=== PATIENT | female | born 1990 | race Caucasian/White ===

== ENCOUNTER → 2018-09-01 | Outpatient (CLI) | payer SELFPAY | LOC: M OUTALCOH 09:59 | PROVIDERS: ATTEND Psychiatry & Neurology Psychiatry | DX: Z13.9 Encounter for screening, unspecified (principal) ==

== ENCOUNTER 2018-09-29 10:00 | Outpatient (RCR) | payer SELFPAY | END 2018-10-02 | LOC: M OUTALCOH 10:00 | PROVIDERS: ATTEND Psychiatry & Neurology Psychiatry | DX: F14.10 Cocaine abuse, uncomplicated (principal); F10.10 Alcohol abuse, uncomplicated; F17.200 Nicotine dependence, unspecified, uncomplicated ==

== ENCOUNTER → 2018-11-01 | Outpatient (RCR) | payer SELFPAY | LOC: M OUTALCOH 10-06 13:56 | PROVIDERS: ATTEND Psychiatry & Neurology Psychiatry | DX: F14.10 Cocaine abuse, uncomplicated (principal); F10.10 Alcohol abuse, uncomplicated; F17.200 Nicotine dependence, unspecified, uncomplicated ==

== ENCOUNTER 2018-11-25 03:04 | Emergency (ER) | payer SELFPAY ==
[~2018-11-25] VITALS: Ht 167.6 cm; Wt 68.6 kg
[2018-11-25] MEDS ORDERED: WELLTAB38 PO (03:14)
[2018-11-25] MEDS ORDERED: MIRE1IUD IU (03:14)
[2018-11-25 03:27] LABS: HEMATOCRIT 38.7 % (36.0-47.0); HEMOGLOBIN 13.6 g/dl (12.0-15.5); MEAN CORPUSCULAR HEMOGLOBIN 31.9 pg (27.0-33.0); MEAN CORPUSCULAR HGB CONC 35.1 g/dl (32.0-36.5); MEAN CORPUSCULAR VOLUME 90.8 fl (80.0-96.0); PLATELET COUNT, AUTOMATED 225 10^3/uL (150-450); RED BLOOD COUNT 4.26 10^6/uL (4.00-5.40); WHITE BLOOD COUNT 7.2 10^3/uL (4.0-10.0)
[2018-11-25] MEDS ORDERED: ONDANSETRON 4MG/2ML VIAL (J2405) IV ONE (03:30)
[2018-11-25] MEDS ORDERED: NS 1,000 ML IV ONE (03:30)
[2018-11-25 03:41] LABS: HCG, SERUM QUALITATIVE NEGATIVE (NEGATIVE)
[2018-11-25 03:56] LABS: ACETAMINOPHEN LEVEL < 2.0 UG/ML (10.0-30.0); ALBUMIN 4.1 GM/DL (3.2-5.2); ALT/SGPT 23 U/L (12-78); BILIRUBIN,DIRECT < 0.1 MG/DL (0.0-0.2); BILIRUBIN,TOTAL 0.4 MG/DL (0.2-1.0); BLOOD UREA NITROGEN 6 MG/DL (7-18); CALCIUM LEVEL 8.8 MG/DL (8.5-10.1); CARBON DIOXIDE LEVEL 23 MEQ/L (21-32); CHLORIDE LEVEL 107 MEQ/L (98-107); CREATININE FOR GFR 0.88 MG/DL (0.55-1.30); ETHYL ALCOHOL (ETHANOL) 0.094 % (0.000-0.010); GLOMERULAR FILTRATION RATE > 60.0 (>60); GLUCOSE, FASTING 157 MG/DL (70-100); POTASSIUM SERUM 3.5 MEQ/L (3.5-5.1); SALICYLATE LEVEL 3.2 MG/DL (5.0-30.0); SODIUM LEVEL 141 MEQ/L (136-145); TOTAL PROTEIN 6.9 GM/DL (6.4-8.2)
[2018-11-25 05:41] VITALS: BP 106/55
--- NOTE | 2018-11-25 07:33 | ECGEPIP ---
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
--- NOTE | 2018-11-25 08:06 | REP ---
Clinical: Shortness of breath . Comparison: None . Technique: PA and lateral. Findings: The mediastinum and cardiac silhouette are normal. The lung cardenas are clear and without acute consolidation, effusion, or pneumothorax. The skeletal structures are intact and normal. Impression: 1. No acute cardiopulmonary process. Electronically Signed by Jean Pierre Beal MD 11/25/2018 07:58 A
== END 2018-11-25 05:32 | disposition home or self-care (01) ==
LOC: M ED 03:04
DX: F10.20 Alcohol dependence, uncomplicated (principal); F19.10 Other psychoactive substance abuse, uncomplicated; F33.9 Major depressive disorder, recurrent, unspecified; F41.9 Anxiety disorder, unspecified; K21.9 Gastro-esophageal reflux disease without esophagitis; Z79.899 Other long term (current) drug therapy; Z79.3 Long term (current) use of hormonal contraceptives; Z88.0 Allergy status to penicillin; Z88.2 Allergy status to sulfonamides; Z88.8 Allergy status to other drugs, medicaments and biological substances; F17.210 Nicotine dependence, cigarettes, uncomplicated
CPT/HCPCS: 71046; 80048; 80076; 84443; 84703; 85027; 93005; 96361; 96374; 99284; G0480; J2405

== ENCOUNTER 2018-11-29 13:00 | Outpatient (RCR) | payer SELFPAY ==
[~2018-11-29 13:00] MED LIST: MIRE1IUD IU; WELLTAB38 PO
== END 2018-12-02 ==
LOC: M OUTALCOH 13:00
PROVIDERS: ATTEND Psychiatry & Neurology Psychiatry
DX: F14.10 Cocaine abuse, uncomplicated (principal); F10.10 Alcohol abuse, uncomplicated; F17.200 Nicotine dependence, unspecified, uncomplicated

== ENCOUNTER 2018-12-27 14:39 | Outpatient (RCR) | payer OTHER, SELFPAY | END 2019-01-01 | LOC: M OUTALCOH 14:39 | PROVIDERS: ATTEND Psychiatry & Neurology Psychiatry | DX: F14.10 Cocaine abuse, uncomplicated (principal); F10.10 Alcohol abuse, uncomplicated; F17.200 Nicotine dependence, unspecified, uncomplicated ==

== ENCOUNTER 2019-01-30 16:00 | Outpatient (RCR) | payer OTHER, SELFPAY | END 2019-02-01 | LOC: M OUTALCOH 16:00 | PROVIDERS: ATTEND Psychiatry & Neurology Psychiatry | DX: F10.10 Alcohol abuse, uncomplicated (principal); F14.10 Cocaine abuse, uncomplicated; F17.200 Nicotine dependence, unspecified, uncomplicated ==

== ENCOUNTER 2019-03-03 11:30 | Outpatient (RCR) | payer SELFPAY | END 2019-03-04 | LOC: M OUTALCOH 11:30 | PROVIDERS: ATTEND Psychiatry & Neurology Psychiatry | DX: F14.10 Cocaine abuse, uncomplicated (principal); F10.10 Alcohol abuse, uncomplicated; F17.200 Nicotine dependence, unspecified, uncomplicated ==

== ENCOUNTER 2019-03-30 16:00 | Outpatient (RCR) | payer SELFPAY | END 2019-04-03 | LOC: M OUTALCOH 16:00 | PROVIDERS: ATTEND Psychiatry & Neurology Psychiatry | DX: F14.10 Cocaine abuse, uncomplicated (principal); F10.10 Alcohol abuse, uncomplicated; F17.200 Nicotine dependence, unspecified, uncomplicated ==

== ENCOUNTER → 2019-09-08 | Outpatient (CLI) | payer OTHER | LOC: M OUTALCOH 08:19 | PROVIDERS: ATTEND Psychiatry & Neurology Addiction Medicine | DX: F11.20 Opioid dependence, uncomplicated (principal); F14.20 Cocaine dependence, uncomplicated ==

== ENCOUNTER 2019-10-02 08:45 | Outpatient (RCR) | payer OTHER | END 2019-10-03 | LOC: M OUTALCOH 08:45 | PROVIDERS: ATTEND Psychiatry & Neurology Addiction Medicine | DX: F14.20 Cocaine dependence, uncomplicated (principal); F11.20 Opioid dependence, uncomplicated ==

== ENCOUNTER → 2019-11-02 | Outpatient (RCR) | payer OTHER | LOC: M OUTALCOH 10-04 13:18 | PROVIDERS: ATTEND Psychiatry & Neurology Addiction Medicine | DX: F14.20 Cocaine dependence, uncomplicated (principal); F11.20 Opioid dependence, uncomplicated ==

== ENCOUNTER 2019-12-01 11:00 | Outpatient (RCR) | payer OTHER | END 2019-12-03 | LOC: M OUTALCOH 11:00 | PROVIDERS: ATTEND Psychiatry & Neurology Addiction Medicine | DX: F14.20 Cocaine dependence, uncomplicated (principal); F11.20 Opioid dependence, uncomplicated ==

== ENCOUNTER → 2020-01-02 | Outpatient (RCR) | payer OTHER | LOC: M OUTALCOH 12-04 10:18 | PROVIDERS: ATTEND Psychiatry & Neurology Addiction Medicine | DX: F14.20 Cocaine dependence, uncomplicated (principal); F11.20 Opioid dependence, uncomplicated ==

== ENCOUNTER → 2020-02-02 | Outpatient (RCR) | payer OTHER | LOC: M OUTALCOH 01-09 13:10 | PROVIDERS: ATTEND Psychiatry & Neurology Addiction Medicine | DX: F14.20 Cocaine dependence, uncomplicated (principal); F11.20 Opioid dependence, uncomplicated ==

== ENCOUNTER 2020-03-01 13:00 | Outpatient (RCR) | payer OTHER | END 2020-03-04 | LOC: M OUTALCOH 13:00 | PROVIDERS: ATTEND Psychiatry & Neurology Addiction Medicine | DX: F14.20 Cocaine dependence, uncomplicated (principal); F11.20 Opioid dependence, uncomplicated ==

== ENCOUNTER → 2020-04-03 | Outpatient (RCR) | payer OTHER | LOC: M OUTALCOH 03-05 13:34 | PROVIDERS: ATTEND Psychiatry & Neurology Addiction Medicine | DX: F14.20 Cocaine dependence, uncomplicated (principal); F11.20 Opioid dependence, uncomplicated ==

== ENCOUNTER 2020-04-24 13:00 | Outpatient (RCR) | payer OTHER | END 2020-05-04 | LOC: M OUTALCOH 13:00 | PROVIDERS: ATTEND Psychiatry & Neurology Addiction Medicine | DX: F14.20 Cocaine dependence, uncomplicated (principal); F11.20 Opioid dependence, uncomplicated ==

== ENCOUNTER → 2023-05-11 | Outpatient (REF) | LOC: M PLAIMG 14:09 | PROVIDERS: ATTEND Internal Medicine | DX: R52 Pain, unspecified (principal) ==

== ENCOUNTER → 2025-06-26 | Outpatient (REF) | payer OTHER | LOC: M LAB REF 11:46 | PROVIDERS: ATTEND Physician Assistant Medical | DX: B34.9 Viral infection, unspecified (principal) ==